=== PATIENT | female | born 1975 | race Caucasian/White ===

== ENCOUNTER → 2017-05-19 11:43 | Outpatient (CLI) | payer BC, SELFPAY ==
--- NOTE | 2017-05-19 11:49 | XR_ITS ---
XR chest 2V HISTORY: ITS.REASON: PERSISTENT COUGH ORDERING PHYSICIAN: Hannah Gupta PATIENT AGE: 42 years COMPARISON: None available FINDINGS: The cardiomediastinal silhouette and pulmonary vascularity are within normal limits. The lungs are clear without infiltrates, suspicious nodules, or pleural effusions. No acute bony abnormalities. IMPRESSION: Negative chest, no acute finding
== END ==
PROVIDERS: PCP Internal Medicine Adolescent Medicine; Visit Provider Nurse Practitioner Family
DX: R05 Cough (principal)
CPT/HCPCS: 71046

== ENCOUNTER 2017-05-23 22:01 | Emergency (ER) | payer BC, SELFPAY ==
[2017-05-23 22:22] VITALS: BP 129/79; PULSE 74; RESP 16; TEMP 36.8; O2SAT 96; BMI 32.5
[2017-05-23 23:07] LABS: Basophils % 0.3 % (0.1-2.0); Eosinophils # 0.1 K/mm3 (0.0-0.4); Eosinophils % 1.1 % (0.1-12.0); Hematocrit 34.5 % (37.0-47.0); Hemoglobin 11.3 g/dL (12.2-16.2); Lymphocytes # 1.5 K/mm3 (0.7-4.5); Lymphocytes % 21.3 K/mm3 (10-50); Mean Corpuscular HGB Conc 32.9 g/dL (31.8-35.4); Mean Corpuscular Hemoglobin 28.8 pg (27.0-31.2); Mean Corpuscular Volume 87.6 fl (81-99); Mean Platelet Volume 7.8 fl (7.4-10.4); Monocytes # 0.5 K/mm3 (0.1-1.0); Monocytes % 6.2 % (1.7-9.3); Neutrophils # 5.1 K/mm3 (1.8-7.8); Neutrophils % 71.1 % (37.0-80.0); Platelet Count 297 K/mm3 (142-424); Red Blood Count 3.93 M/mm3 (4.20-5.40); Red Cell Distribution Width 13.9 % (11.5-17.5); White Blood Count 7.2 K/mm3 (4.8-10.8)
[2017-05-23 23:14] LABS: Anion Gap 11.5 mEq/L (5-15); Blood Urea Nitrogen 13 mg/dL (7-18); Carbon Dioxide 29 mmol/L (21.0-32.0); Chloride 107 mmol/L (98-107); Creatinine Clearance Estimated 101 mL/min (0-300); Creatinine,Serum 1.05 mg/dL (0.55-1.02); Estimated Glomerular Filt Rate 57 ml/min (>60); GFR (African American) 70 ML/MIN (>60); Glucose 114 mg/dL (74-106); Potassium 3.5 mmoL/L (3.5-5.1); Sodium 144 mmol/L (136-145)
--- NOTE | 2017-05-23 23:34 | XR_ITS ---
XR chest 2V HISTORY: ITS.REASON: shortness of breath ORDERING PHYSICIAN: Zain Person MD PATIENT AGE: 42 years COMPARISON: 05/19/2017 FINDINGS: The cardiomediastinal silhouette and pulmonary vascularity are within normal limits. The lungs are clear without infiltrates, suspicious nodules, or pleural effusions. No acute bony abnormalities. IMPRESSION: Negative chest, no acute finding
--- NOTE | 2017-05-24 00:09 | HMH.EDSOB ---
ED Disposition Clinical Impression: Bronchitis Disposition: Home, Self-Care Condition on Discharge: Good Instructions: DI for Cough -- Adult Additional Instructions: fluids and use meds and call pcp for follow up Prescriptions: Azithromycin [Zithromax 250mg tab] 250 mg PO DIRECTED #6 tab predniSONE [Prednisone 20mg Tab] 20 mg PO DAILY #10 tab Referrals: Ministerio Phillips MD [Primary Care Provider] - - Critical Care Critical Care Time: No Attestation: On 05/23/17, the high probability of a clinically significant, sudden or life threatening deterioration of the following system(s) required my full and direct attention, intervention and personal management. The time I documented below is in addition to time spent performing reported procedures but includes the following listed in this critical care notation. Medical Decision Making - Medical Records Medical records reviewed: Yes: I reviewed the patient's medical records. Vital Signs: 05/23/17 22:22 Temperature 98.3 F Temperature Source Oral Pulse Rate [Left Radial] 74 Respiratory Rate 16 Blood Pressure [Right Arm] 129/79 Blood Pressure Mean [Right Arm] 95 Blood Pressure Source [Right Arm] Automatic Cuff Blood Pressure Position [Right Arm] Supine 02 Sat by Pulse Oximetry 96 Oxygen Delivery Method Room Air - Lab Data Lab results reviewed: Yes: I reviewed the patient's lab results. Lab Results 05/23/17 22:56: WBC 7.2, RBC 3.93 L, Hgb 11.3 L, Hct 34.5 L, MCV 87.6, MCH 28.8, MCHC 32.9, RDW 13.9, Plt Count 297, MPV 7.8, Neut % (Auto) 71.1, Lymph % (Auto) 21.3, [place] % (Auto) 6.2, Eos % (Auto) 1.1, Baso % (Auto) 0.3, Neut # (Auto) 5.1, Lymph # (Auto) 1.5, [place] # (Auto) 0.5, Eos # (Auto) 0.1, Baso # (Auto) 0.0 05/23/17 22:56: Sodium 144, Potassium 3.5, Chloride 107, Carbon Dioxide 29, Anion Gap 11.5, BUN 13, Creatinine 1.05 H, Estimated Creat Clear 101, Estimated GFR 57 L, Est GFR ( Amer) 70, Glucose 114 H 05/23/17 22:56: Influenza Type A Ag Negative, Influenza Type B Ag Negative Result diagrams: 05/23/17 22:56 05/23/17 22:56 Orders (Tests/Meds): ED MEDICATIONS Discontinued Medications Generic Name Dose Route Start Last Admin Trade Name Shameka PRN Reason Stop Dose Admin Sodium Chloride 1,000 mls @ 999 mls/hr 05/23/17 22:45 05/23/17 22:53 Sod Chloride 0.9% 1000ml Bag IV 05/23/17 23:45 999 mls/hr .Q1H1M GISELLE Administration Ceftriaxone Sodium 1 gm/ 50 mls @ 100 mls/hr 05/24/17 00:13 05/24/17 00:22 Sodium Chloride IV 05/24/17 00:42 100 mls/hr ONCE ONE Administration Methylprednisolone Sodium Succinate 125 mg 05/24/17 00:13 05/24/17 00:22 Solu-Medrol 125mg/2ml Vial IV 05/24/17 00:14 125 mg ONCE ONE Administration ORDERS Category Date Time Status XR chest 2V Stat Exams 05/23/17 23:34 Taken - Radiology Data #1 Image(s): Chest Image Reviewed: Yes I reviewed the patient's radiology image Preliminary Findings: Normal/NAD - [place]fe[place] Inquiry Pt receiving controlled substance: No Resp/SOB HPI - General Chief Complaint: Shortness of Breath/Dyspnea Stated Complaint: cough,sob,potter Time Seen by Provider: 05/24/17 00:09 Mode of Arrival: Ambulatory Limitations: No Limitations Description of Symptoms (Recalled from ER Triage Doc. 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
--- NOTE | 2017-05-24 00:12 | ED_ITS ---
ED Disposition Clinical Impression: Bronchitis Disposition: Home, Self-Care Condition on Discharge: Good Instructions: DI for Cough -- Adult Additional Instructions: fluids and use meds and call pcp for follow up Prescriptions: Azithromycin [Zithromax 250mg tab] 250 mg PO DIRECTED #6 tab predniSONE [Prednisone 20mg Tab] 20 mg PO DAILY #10 tab Referrals: Ministerio Phillips MD [Primary Care Provider] - - Critical Care Critical Care Time: No Attestation: On 05/23/17, the high probability of a clinically significant, sudden or life threatening deterioration of the following system(s) required my full and direct attention, intervention and personal management. The time I documented below is in addition to time spent performing reported procedures but includes the following listed in this critical care notation. Medical Decision Making - Medical Records Medical records reviewed: Yes: I reviewed the patient's medical records. Vital Signs: 05/23/17 22:22 Temperature 98.3 F Temperature Source Oral Pulse Rate [Left Radial] 74 Respiratory Rate 16 Blood Pressure [Right Arm] 129/79 Blood Pressure Mean [Right Arm] 95 Blood Pressure Source [Right Arm] Automatic Cuff Blood Pressure Position [Right Arm] Supine 02 Sat by Pulse Oximetry 96 Oxygen Delivery Method Room Air - Lab Data Lab results reviewed: Yes: I reviewed the patient's lab results. Lab Results 05/23/17 22:56: WBC 7.2, RBC 3.93 L, Hgb 11.3 L, Hct 34.5 L, MCV 87.6, MCH 28.8 , MCHC 32.9, RDW 13.9, Plt Count 297, MPV 7.8, Neut % (Auto) 71.1, Lymph % (Auto ) 21.3, [place] % (Auto) 6.2, Eos % (Auto) 1.1, Baso % (Auto) 0.3, Neut # (Auto) 5.1, Lymph # (Auto) 1.5, [place] # (Auto) 0.5, Eos # (Auto) 0.1, Baso # (Auto) 0.0 05/23/17 22:56: Sodium 144, Potassium 3.5, Chloride 107, Carbon Dioxide 29, Anion Gap 11.5, BUN 13, Creatinine 1.05 H, Estimated Creat Clear 101, Estimated GFR 57 L, Est GFR ( Amer) 70, Glucose 114 H 05/23/17 22:56: Influenza Type A Ag Negative, Influenza Type B Ag Negative Result diagrams: 05/23/17 22:56 05/23/17 22:56 Orders (Tests/Meds): ED MEDICATIONS Discontinued Medications Generic Name Dose Route Start Last Admin Trade Name Freq PRN Reason Stop Dose Admin Sodium Chloride 1,000 mls @ 999 mls/hr 05/23/17 22:45 05/23/17 22:53 Sod Chloride 0.9% 1000ml Bag IV 05/23/17 23:45 999 mls/hr .Q1H1M GISELLE Administration Ceftriaxone Sodium 1 gm/ 50 mls @ 100 mls/hr 05/24/17 00:13 05/24/17 00:22 Sodium Chloride IV 05/24/17 00:42 100 mls/hr ONCE ONE Administration Methylprednisolone Sodium Succinate 125 mg 05/24/17 00:13 05/24/17 00:22 Solu-Medrol 125mg/2ml Vial IV 05/24/17 00:14 125 mg ONCE ONE Administration ORDERS Category Date Time Status XR chest 2V Stat Exams 05/23/17 23:34 Taken - Radiology Data #1 Image(s): Chest Image Reviewed: Yes I reviewed the patient's radiology image Preliminary Findings: Normal/NAD - [place]go Inquiry Pt receiving controlled substance: No Resp/SOB HPI - General Chief Complaint: Shortness of Breath/Dyspnea Stated Complaint: cough,sob,potter Time Seen by Provider: 05/24/17 00:09 Mode of Arrival: Ambulatory Limitations: No Limitations Description of Symptoms (Recalled from ER Triage Doc. by RN): flu 2 weeks ago,
[2017-05-24 01:12] VITALS: BP 142/72; PULSE 90; RESP 14; O2SAT 96
== END 2017-05-24 01:12 | disposition home or self-care (01) ==
PROVIDERS: Emergency Provider Emergency Medicine; Family Provider Internal Medicine Adolescent Medicine; PCP Internal Medicine Adolescent Medicine
DX: J40 Bronchitis, not specified as acute or chronic (principal); Z79.82 Long term (current) use of aspirin; Z79.899 Other long term (current) drug therapy
CPT/HCPCS: 71046; 80048; 85025; 87275; 87276; 96365; 96367; 96375; 99283

== ENCOUNTER → 2017-11-04 10:40 | Outpatient (CLI) | payer BC, SELFPAY | PROVIDERS: PCP Internal Medicine Adolescent Medicine; Visit Provider Internal Medicine Adolescent Medicine | DX: R00.1 Bradycardia, unspecified (principal); R55 Syncope and collapse | CPT/HCPCS: 93270 ==

== ENCOUNTER 2018-09-20 15:26 | Emergency (ER) | payer MEDICAID, SELFPAY ==
[2018-09-20 15:44] VITALS: BP 133/89; PULSE 80; RESP 20; TEMP 36.8; O2SAT 98; BMI 31.3
--- NOTE | 2018-09-20 15:50 | HMH.EDUTC ---
[facility] [place] Dis[place] Clinical Impression: Migraine Qualifiers: Migraine type: with aura Status migrainosus presence: without status migrainosus Intractability: not intractable Qualified Code(s): G43.109 - Migraine with aura, not intractable, without status migrainosus Disposition: Home, Self-Care Condition on Discharge: Good Instructions: Migraine -- Adult, DI for Migraine Additional Instructions: Go home and rest. Take the promethazine (phenergran) for nausea if you need it. I sent in oral Imitrex for you try at home in the future. Don't take it today since you had the shot of it here. I sent in more ibuprofen 800 mg tablets for you to have at home. Follow up with your regular doctor. GO TO THE ER FOR ANY WORSENING SYMPTOMS Prescriptions: Ibuprofen [Ibuprofen 800mg Tablet] 800 mg PO TIDP PRN #30 tab PRN Reason: Moderate Pain SUMAtriptan succinate [Imitrex] 50 mg PO DAILYP PRN #20 tab PRN Reason: Migraine Headache Promethazine HCl [Phenergan 25mg tab] 25 mg PO Q6H PRN #30 tab PRN Reason: Nausea And Vomiting Referrals: Ministerio Phillips MD [Primary Care Provider] - Forms: Work/School Release Time of Disposition: 16:10 Medical Decision Making - Medical Records Medical records reviewed: Yes: I reviewed the patient's medical records. - Elfego Inquiry Pt receiving controlled substance: No Elfego was queried for this patient: No Vital Signs: 09/20/18 15:44 09/20/18 16:25 Temperature 98.3 F 98.3 F Temperature Source Oral Oral Pulse Rate 80 Pulse Rate [Right Brachial] 80 Respiratory Rate 20 20 Blood Pressure 133/89 Blood Pressure [Right Arm] 133/89 Blood Pressure Mean [Right Arm] 103 Blood Pressure Source Automatic Cuff Blood Pressure Source [Right Arm] Automatic Cuff Blood Pressure Position Sitting Blood Pressure Position [Right Arm] Sitting 02 Sat by Pulse Oximetry 98 Oxygen Delivery Method Room Air Room Air - Lab Data Lab results reviewed: Yes: I reviewed the patient's lab results. Orders (Tests/Meds): ED MEDICATIONS Discontinued Medications Generic Name Dose Route Start Last Admin Trade Name Freq PRN Reason Stop Dose Admin Ketorolac Tromethamine 60 mg 09/20/18 16:01 09/20/18 16:15 Toradol 60mg/2ml Vial IM 09/20/18 16:02 60 mg ONCE ONE Administration Methylprednisolone Sodium Succinate 125 mg 09/20/18 16:01 09/20/18 16:15 Solu-Medrol 125mg/2ml Vial IM 09/20/18 16:02 125 mg ONCE ONE Administration Sumatriptan Succinate 6 mg 09/20/18 16:02 09/20/18 16:15 Imitrex 6mg/0.5ml Vial SQ 09/20/18 16:03 6 mg ONCE ONE Administration [facility] [place] HPI - General Stated complaint: headache Time Seen by Provider: 09/20/18 15:50 Mode of Arrival: Family Vehicle Source of Information: Patient Limitations: No Limitations Description of Symptoms (Recalled from Triage Doc. by RN): c/o migraine headache HEENT Symptoms (Recalled from RN notes): Yes Resp Symptoms (Recalled from RN notes): No Skin Symptoms (Recalled from RN notes): No MS Symptoms (Recalled from RN notes): No Functional Status (Recalled from RN notes): n/a - History of Present Illness Provider Complaint: She has a history of migraine headache. Usually she can get it better by taking ibuprofen at home, but sometimes she ends up having to come in to get toradol, imitrex and a steroid shot to break it. She states this headache began yesterday morning. She denies that this is the worst headache of her life. She denies any neurological deficits. - Related Data Home Medications Medication Instructions Recorded Confirmed Aspirin [Aspirin 81mg chewable 81 mg PO DAILY 05/23/17 06/11/18 tab] Cetirizine HCl 10 mg PO DAILY 05/23/17 06/11/18 Citalopram Hydrobromide [Celexa 40 mg PO DAILY 05/23/17 06/11/18 40mg Tablet] Furosemide [Lasix 20mg tab] 20 mg PO DAILY 05/23/17 06/11/18 Lisinopril/Hydrochlorothiazide 1 tab PO DAILY 05/23/17 06/11/18 [Lisinopril-Hctz 20-25 mg
--- NOTE | 2018-09-20 15:58 | ED_ITS ---
[facility] [place] Impression: Migraine Qualifiers: Migraine type: with aura Status migrainosus presence: without status migrainosus Intractability: not intractable Qualified Code(s): G43.109 - Migraine with aura, not intractable, without status migrainosus Disposition: Home, Self-Care Condition on Discharge: Good Instructions: Migraine -- Adult, DI for Migraine Additional Instructions: Go home and rest. Take the promethazine (phenergran) for nausea if you need it. I sent in oral Imitrex for you try at home in the future. Don't take it today since you had the shot of it here. I sent in more ibuprofen 800 mg tablets for you to have at home. Follow up with your regular doctor. GO TO THE ER FOR ANY WORSENING SYMPTOMS Prescriptions: Ibuprofen [Ibuprofen 800mg Tablet] 800 mg PO TIDP PRN #30 tab PRN Reason: Moderate Pain SUMAtriptan succinate [Imitrex] 50 mg PO DAILYP PRN #20 tab PRN Reason: Migraine Headache Promethazine HCl [Phenergan 25mg tab] 25 mg PO Q6H PRN #30 tab PRN Reason: Nausea And Vomiting Referrals: Ministerio Phillips MD [Primary Care Provider] - Forms: Work/School Release Time of Disposition: 16:10 Medical Decision Making - Medical Records Medical records reviewed: Yes: I reviewed the patient's medical records. - Elfego Inquiry Pt receiving controlled substance: No Elfego was queried for this patient: No Vital Signs: 09/20/18 15:44 09/20/18 16:25 Temperature 98.3 F 98.3 F Temperature Source Oral Oral Pulse Rate 80 Pulse Rate [Right Brachial] 80 Respiratory Rate 20 20 Blood Pressure 133/89 Blood Pressure [Right Arm] 133/89 Blood Pressure Mean [Right Arm] 103 Blood Pressure Source Automatic Cuff Blood Pressure Source [Right Arm] Automatic Cuff Blood Pressure Position Sitting Blood Pressure Position [Right Arm] Sitting 02 Sat by Pulse Oximetry 98 Oxygen Delivery Method Room Air Room Air - Lab Data Lab results reviewed: Yes: I reviewed the patient's lab results. Orders (Tests/Meds): ED MEDICATIONS Discontinued Medications Generic Name Dose Route Start Last Admin Trade Name Freq PRN Reason Stop Dose Admin Ketorolac Tromethamine 60 mg 09/20/18 16:01 09/20/18 16:15 Toradol 60mg/2ml Vial IM 09/20/18 16:02 60 mg ONCE ONE Administration Methylprednisolone Sodium Succinate 125 mg 09/20/18 16:01 09/20/18 16:15 Solu-Medrol 125mg/2ml Vial IM 09/20/18 16:02 125 mg ONCE ONE Administration Sumatriptan Succinate 6 mg 09/20/18 16:02 09/20/18 16:15 Imitrex 6mg/0.5ml Vial SQ 09/20/18 16:03 6 mg ONCE ONE Administration [facility] [place] - General Stated complaint: headache Time Seen by Provider: 09/20/18 15:50 Mode of Arrival: Family Vehicle Source of Information: Patient Limitations: No Limitations Description of Symptoms (Recalled from Triage Doc. by RN): c/o migraine headache HEENT Symptoms (Recalled from RN notes): Yes Resp Symptoms (Recalled from RN notes): No Skin Symptoms (Recalled from RN notes): No MS Symptoms (Recalled from RN notes): No Functional Status (Recalled from RN notes): n/a - History of Present Illness Provider Complaint: She has a history of migraine headache. Usually she can get it better by
[2018-09-20 16:25] VITALS: BP 133/89; PULSE 80; RESP 20; TEMP 36.8; O2SAT 98
== END 2018-09-20 16:28 | disposition home or self-care (01) ==
PROVIDERS: Emergency Provider Nurse Practitioner Family; PCP Internal Medicine Adolescent Medicine
DX: G43.109 Migraine with aura, not intractable, without status migrainosus (principal); Z88.0 Allergy status to penicillin
CPT/HCPCS: 96372; 99201

== ENCOUNTER → 2018-11-14 10:39 | Outpatient (CLI) | payer MEDICAID, SELFPAY ==
[2018-11-14 11:16] LABS: Basophils % 0.3 % (0.1-2.0); Eosinophils # 0.1 K/mm3 (0.0-0.4); Eosinophils % 1.9 % (0.1-12.0); Hematocrit 37.4 % (37.0-47.0); Hemoglobin 11.9 g/dL (12.2-16.2); Lymphocytes # 1.4 K/mm3 (0.7-4.5); Lymphocytes % 25.7 % (10-50); Mean Corpuscular HGB Conc 31.8 g/dL (31.8-35.4); Mean Corpuscular Hemoglobin 26.8 pg (27.0-31.2); Mean Corpuscular Volume 84.3 fl (81-99); Mean Platelet Volume 7.2 fl (7.4-10.4); Monocytes # 0.3 K/mm3 (0.1-1.0); Monocytes % 4.5 % (1.7-9.3); Neutrophils # 3.7 K/mm3 (1.8-7.8); Neutrophils % 67.5 % (37.0-80.0); Platelet Count 294 K/mm3 (142-424); Red Blood Count 4.44 M/mm3 (4.20-5.40); Red Cell Distribution Width 13.3 % (11.5-17.5); White Blood Count 5.5 K/mm3 (4.8-10.8)
[2018-11-16 08:18] LABS: FSH 83.1 mIU/mL (.); LH 74.2 mIU/mL (.); Vitamin D 25 Hydroxy 25.4 ng/mL (30.0-100.0)
== END ==
PROVIDERS: Visit Provider Internal Medicine Adolescent Medicine
DX: R53.83 Other fatigue (principal); R53.81 Other malaise; E55.9 Vitamin D deficiency, unspecified
CPT/HCPCS: 36415; 82652; 83001; 83002; 85025

== ENCOUNTER → 2018-11-20 16:34 | Outpatient (CLI) | payer MEDICAID, SELFPAY ==
[2018-11-20 17:31] LABS: Erythrocyte Sedimentation Rate 24 mm/hr (0-20)
[2018-11-22 13:09] LABS: Anti-Centromere B Antibodies <0.2 AI (0.0-0.9); Anti-Jo-1 <0.2 AI (0.0-0.9); Anti-Smith Antibody <0.2 AI (0.0-0.9); Antichromatin Antibodies <0.2 AI (0.0-0.9); Antiscleroderma-70 Antibodies <0.2 AI (0.0-0.9); RNP Antibodies <0.2 AI (0.0-0.9); Sjogren's Anti-SS-A <0.2 AI (0.0-0.9); Sjogren's Anti-SS-B <0.2 AI (0.0-0.9)
[2018-11-23 11:15] LABS: Anti-DNA (DS) Ab Qn 2 IU/mL (0-9); RA Latex Turbid. <10.0 IU/mL (0.0-13.9)
[2018-11-23 11:16] LABS: Anti-Cyclic Citrullinated Pept 9 units (0-19)
== END ==
PROVIDERS: Visit Provider Internal Medicine Adolescent Medicine
DX: M25.50 Pain in unspecified joint (principal)
CPT/HCPCS: 36415; 85651; 86200; 86225; 86235; 86431

== ENCOUNTER → 2018-11-29 08:23 | Outpatient (CLI) | payer MEDICAID, SELFPAY ==
--- NOTE | 2018-11-29 08:25 | MM_ITS ---
MM Dig screening mamm BI w/CAD ORDERING PHYSICIAN : Ministerio Phillips MD PATIENT AGE: 43 years GENDER: Female COMPARISON: February 22 2014 & February 06, 2014, bilateral mammogram images. Bilateral Breast ultrasound January 2014 revealed cyst at right breast INDICATION: Routine: SCREENING mammogram. No hormones. No new complaints. Family history: paternal great grandmother with breast cancer in her 70s. Also Cousin with breast cancer. TECHNIQUE: Standard CC and MLO images were obtained. R2 CAD reviewed. FINDINGS: Mild/moderate residual fibroglandular elements most evident towards upper-outer quadrant both breasts. Mild asymmetry again noted. Left mammogram: Spot views and ultrasound recommended: Small slightly bilobed cyst measures up to 9 mm at lateral left breast with appearances previous studies. Warrants cc and MLO spot view along with full 90 degrees view breast. Followed by left breast ultrasound. This could be a intramammary node or small bilobed cyst but is more apparent than previous studies.. It is seen on the cc view but not only question is seen MLO view Right mammogram: no new areas of significant concern.. . Regression the previous small round density upper-outer quadrant compatible with regressing cyst at at right breast with no new areas of significant concern. A follow-up mammogram one year on right would be adequate IMPRESSION: ...... Left breast. Small bilobed nodule lateral left breast suspect reflects small cyst or possibly intramammary node.. However is become apparent since prior studies in this warrants spot views and ultrasound as prescribed within body of report above Right breast. No significant new findings. Follow-up mammogram in one year on right would be adequate BI-RADS Category: 0 Need Additional Imaging Evaluation RECOMMENDED FOLLOW-UP: IMM - IMMEDIATE FOLLOW-UP RECOMMENDED (A letter has been sent to the patient regarding results of the study.)
== END ==
PROVIDERS: PCP Internal Medicine Adolescent Medicine; Visit Provider Internal Medicine Adolescent Medicine
DX: Z12.31 Encounter for screening mammogram for malignant neoplasm of breast (principal)
CPT/HCPCS: 77067

== ENCOUNTER → 2018-12-15 14:22 | Outpatient (CLI) | payer MEDICAID, SELFPAY ==
--- NOTE | 2018-12-15 14:27 | MM_ITS ---
PROCEDURE: MM DIG MAMM DX UNILAT LT CAD LEFT BREAST ULTRASOUND COMPLETE WITH AXILLA CLINICAL INDICATION: ABNORMAL MAMM Follow-up abnormal mammogram COMPARISON: [facility] DIG MAMM-SCREEN NATHANAEL from 02/06/2014 [facility] DIG MAMM- NATHANAEL ADD VIEWS from 02/22/2014 BB US BREAST-NATHANAEL from 02/22/2014 DIG MAMM-SCREEN NATHANAEL from 11/29/2018 US BREAST LT COMPLETE from 12/15/2018 TECHNIQUE: Problem solving use of left breast performed along with left breast ultrasound FINDINGS: Mammogram: There is persistent asymmetric nodular density in the upper outer aspect of the left breast measuring approximately 9 mm. The margins are fairly well-circumscribed. There may actually be 2 smaller nodules at this area which would correspond to the ultrasound.. No malignant appearing microcalcifications are evident. Left breast ultrasound: There is a 4 by 5 mm cyst at 2 o'clock and an additional 4 x 4 mm cyst at 1 o'clock. IMPRESSION: Asymmetric density in the upper outer left breast may correspond to 2 cysts. Probably benign. Recommend 6 month mammographic and sonographic follow-up. No suspicious sonographic abnormality evident. BI-RAD Category: 3 Probably Benign Finding Short Term Follow-up FOLLOW-UP: 6M 6 Month Follow-up (A letter has been sent to the patient regarding results of the study.) Dictated by: Atul Harris MD 12/19/2018 09:39 Signed by: <Electronically signed by Atul Harris MD in [place]> 12/19/2018 09:39
== END ==
PROVIDERS: PCP Internal Medicine Adolescent Medicine; Visit Provider Internal Medicine Adolescent Medicine
DX: R92.8 Other abnormal and inconclusive findings on diagnostic imaging of breast (principal)
CPT/HCPCS: 76641; 77065

== ENCOUNTER → 2019-11-13 12:10 | Outpatient (CLI) | payer OTHER, SELFPAY ==
[2019-11-14 15:18] LABS: Covid-19 Nasal PCR Sendout Lex NOT DETECTED
== END ==
PROVIDERS: Visit Provider Nurse Practitioner Family
DX: Z20.828 Contact with and (suspected) exposure to other viral communicable diseases (principal)
CPT/HCPCS: U0004

== ENCOUNTER → 2020-05-31 10:04 | Outpatient (CLI) | payer OTHER, SELFPAY ==
[2020-05-31 11:32] LABS: Alanine Aminotransferase 49 U/L (12-78); Albumin Level 4.5 g/dl (3.5-5.0); Albumin/Globulin Ratio 1.2 (1.1-1.8); Alkaline Phosphatase 108 U/L (38-126); Anion Gap 12.4 mEq/L (5-15); Aspartate Amino Transferase 40 U/L (14-36); Bilirubin,Total 0.7 mg/dl (0.2-1.3); Blood Urea Nitrogen 8 mg/dl (7-17); Calcium 9.8 mg/dl (8.4-10.2); Carbon Dioxide 30 mmol/L (22.0-30.0); Chloride 104 mmol/L (98-107); Chol/HDL Ratio 4.2 (1-3.5); Cholesterol 207 mg/dl (140-200); Estimated Glomerular Filt Rate 60 ml/min (>60); GFR (African American) 73 ML/MIN (>60); Globulin 3.9 g/dL (1.3-3.2); Glucose 105 mg/dl (74-100); HDL Cholesterol 49 mg/dl (40-60); Potassium 4.4 mmoL/L (3.5-5.1); Sodium 142 mmol/L (136-145); Total Protein,Serum 8.4 g/dl (6.3-8.2); Triglycerides 182 mg/dl (30-150); VLDL Cholesterol 36 mg/dL (0-40)
[2020-05-31 11:43] LABS: Direct LDL Cholesterol 103.99 mg/dL (100-129)
== END ==
PROVIDERS: Visit Provider Nurse Practitioner Family
DX: I10 Essential (primary) hypertension (principal); Z79.899 Other long term (current) drug therapy
CPT/HCPCS: 36415; 80053; 80061

== ENCOUNTER → 2020-09-18 12:58 | Outpatient (CLI) | payer OTHER, SELFPAY ==
[2020-09-18 13:38] LABS: Basophils # 0.1 K/mm3 (0-0.2); Basophils % 0.7 % (0.1-2.0); Eosinophils # 0.2 K/mm3 (0.0-0.4); Eosinophils % 2.6 % (0.1-12.0); Hematocrit 40.7 % (37.0-47.0); Hemoglobin 13.6 g/dL (12.2-16.2); Lymphocytes # 2.1 K/mm3 (0.7-4.5); Lymphocytes % 28.2 % (10-50); Mean Corpuscular HGB Conc 33.4 g/dL (31.8-35.4); Mean Corpuscular Hemoglobin 28.3 pg (27.0-31.2); Mean Corpuscular Volume 84.7 fl (81-99); Mean Platelet Volume 7.8 fl (7.4-10.4); Monocytes # 0.3 K/mm3 (0.1-1.0); Monocytes % 4.3 % (1.7-9.3); Neutrophils # 4.7 K/mm3 (1.8-7.8); Neutrophils % 64.2 % (37.0-80.0); Platelet Count 292 K/mm3 (142-424); Red Blood Count 4.81 M/mm3 (4.20-5.40); Red Cell Distribution Width 13.4 % (11.5-17.5); White Blood Count 7.4 K/mm3 (4.8-10.8)
[2020-09-18 13:52] LABS: Chloride 103 mmol/L (98-107)
[2020-09-18 13:53] LABS: Potassium 4.2 mmoL/L (3.5-5.1); Sodium 140 mmol/L (136-145)
[2020-09-18 13:55] LABS: Alanine Aminotransferase 31 U/L (12-78); Anion Gap 13.2 mEq/L (5-15); Aspartate Amino Transferase 28 U/L (14-36); Blood Urea Nitrogen 12 mg/dl (7-17); Carbon Dioxide 28 mmol/L (22.0-30.0); Estimated Glomerular Filt Rate 68 ml/min (>60); GFR (African American) 82 ML/MIN (>60)
[2020-09-18 13:56] LABS: Albumin Level 4.6 g/dl (3.5-5.0); Albumin/Globulin Ratio 1.4 (1.1-1.8); Alkaline Phosphatase 104 U/L (38-126); Bilirubin,Total 0.5 mg/dl (0.2-1.3); Calcium 9.2 mg/dl (8.4-10.2); Chol/HDL Ratio 3.9 (1-3.5); Cholesterol 194 mg/dl (140-200); Globulin 3.3 g/dL (1.3-3.2); Glucose 104 mg/dl (74-100); HDL Cholesterol 50 mg/dl (40-60); Total Protein,Serum 7.9 g/dl (6.3-8.2); Triglycerides 140 mg/dl (30-150); VLDL Cholesterol 28 mg/dL (0-40)
[2020-09-18 14:08] LABS: Direct LDL Cholesterol 99.39 mg/dL (100-129)
[2020-09-18 14:13] LABS: 25-OH Vitamin D, Total 24.9 ng/mL (30-100)
[2020-09-18 14:25] LABS: Thyroid Stimulating Hormone 1.85 uIU/mL (0.465-4.68)
[2020-09-18 15:24] LABS: Vitamin B12 708 pg/mL (239-931)
== END ==
PROVIDERS: Visit Provider Internal Medicine Adolescent Medicine
DX: K21.9 Gastro-esophageal reflux disease without esophagitis (principal); R53.81 Other malaise; R53.83 Other fatigue; E55.9 Vitamin D deficiency, unspecified; Z79.899 Other long term (current) drug therapy
CPT/HCPCS: 36415; 80053; 80061; 82306; 82607; 84443; 85025

== ENCOUNTER → 2021-07-17 15:06 | Outpatient (CLI) | payer OTHER, SELFPAY ==
--- NOTE | 2021-07-17 15:11 | MM_ITS ---
PROCEDURE INFORMATION: Exam: MG Bilateral Screening 3D Mammography Exam date and time: 07/17/2021 3:10 PM Age: 46 years old Clinical indication: Screening. Maternal cousin with breast cancer. TECHNIQUE: Imaging protocol: Bilateral Screening tomosynthesis and 2D mammography including computer-aided detection (CAD) when performed. COMPARISON: 1. MG MM DIG MAMM DX UNILAT LT CAD 12/15/2018 3:02 PM 2. MG MM DIG SCREENING MAMM BI W/CAD 11/29/2018 8:52 AM 3. US BREAST LT COMPLETE 12/15/2018 3:25 PM FINDINGS: MAMMOGRAPHY: Breast composition: The breast tissue is composed of scattered areas of fibroglandular density. Mass: New 0.4 cm oval mass in the right upper outer quadrant, posterior 3rd. Resolved left upper outer quadrant mass. Architectural distortion: None. Calcifications: No suspicious calcifications. Asymmetric density: None. Skin thickening: None. Axillary adenopathy: None. IMPRESSION: Patient to be recalled for right breast ultrasound for further evaluation of right breast mass. ASSESSMENT: BI-RADS Category 0: Incomplete- Need Additional Imaging Evaluation and/or Prior Mammograms for Comparison
== END ==
PROVIDERS: PCP Internal Medicine Adolescent Medicine; Visit Provider Nurse Practitioner Family
DX: Z12.31 Encounter for screening mammogram for malignant neoplasm of breast (principal)
CPT/HCPCS: 77063; 77067

== ENCOUNTER → 2021-07-31 12:40 | Outpatient (CLI) | payer OTHER, SELFPAY ==
--- NOTE | 2021-07-31 12:42 | US_ITS ---
PROCEDURE INFORMATION: Exam: US Right Breast, Complete Exam date and time: 07/31/2021 1:12 PM Age: 46 years old Clinical indication: Abnormal findings on imaging; Right; Mass; Additional info: Abn mamm TECHNIQUE: Imaging protocol: Complete ultrasound of all four quadrants of the Right breast and the retroareolar regions, including ultrasound of the axilla when performed. COMPARISON: No relevant recent comparison exams are available. FINDINGS: Breast: High resolution sonography of the RIGHT breast demonstrates 4 x 4 x 4 mm nodule with posterior acoustic enhancement suggestive cyst breast at 10 o'clock position 10 cm from the nipple. Oval lymph nodes nodes with a fatty hilum in RIGHT axilla. IMPRESSION: 1. Probable cystic nodule in RIGHT breast at 10 o'clock position measuring 4 mm. 2. Recommend short interval follow-up and/or FNA-biopsy. ASSESSMENT: BI-RADS 0: Recommend short interval follow-up and/or FNA-biopsy.
== END ==
PROVIDERS: PCP Internal Medicine Adolescent Medicine; Visit Provider Nurse Practitioner Family
DX: R92.8 Other abnormal and inconclusive findings on diagnostic imaging of breast (principal)
CPT/HCPCS: 76641

== ENCOUNTER 2021-10-27 17:41 | Emergency (ER) | payer OTHER, SELFPAY ==
[2021-10-27 18:30] VITALS: BP 132/75; PULSE 87; RESP 18; TEMP 36.7; O2SAT 98; BMI 35.2
--- NOTE | 2021-10-27 18:55 | HMH.EDUTC ---
[facility] [place] Disposition Clinical Impression: URI (upper respiratory infection) Qualifiers: URI type: unspecified URI Qualified Code(s): J06.9 - Acute upper respiratory infection, unspecified Disposition: Home, Self-Care Condition on Discharge: Good Instructions: Sore Throat, DI for COVID-19 (Suspected or Confirmed ), Preventing the Spread of Coronavirus Discharge Instructions Additional Instructions: *Monitor Temp, Over the counter Motrin or Tylenol as directed/as needed Tylenol every 4 hours and Motrin every 6 hours (as long as your family doctor has told you that you can take it) for fever or pain. and straight to ER if unable to lower temp less than 101.0 after medication given *Warm salt water gargles may help to soothe the throat *Throat Lozenges *Warm fluids like tea with honey may help to soothe the throat *Sleep elevated *Humidifier/Vaporizer Your throat swab was sent for culture. Those results are typically sent to your primary care. Be sure to follow up in 2-3 days with your family doctor/primary care physician if no improvement so they can review those result and treat if necessary. If you don?t have a primary care doctor, I recommend you get one but in the mean time, you will have to return to a walk in clinic Follow up IMMEDIATELY for new or worsening symptoms or no Noticeable improvement over the next 48-72 hours. 911 for difficulty breathing or swallowing You were tested for today for COVID19 your test result should be back in the next 24-48 hours, you may check your results on the [facility] My Health Portal Make sure to take your Vitamins Vit. C Vit D and Zinc if you can take them Referrals: Ministerio Phillips MD [Primary Care Provider] - As needed Forms: Work/School Release Time of Disposition: 20:20 Medical Decision Making - Elfego Inquiry Pt receiving controlled substance: No Elfego was queried for this patient: No Vital Signs: 10/27/21 18:30 10/27/21 20:01 Temperature 98.0 F 98.0 F Temperature Source Oral Pulse Rate 87 Pulse Rate [Right Brachial] 87 Respiratory Rate 18 18 Blood Pressure 132/75 Blood Pressure [Right Arm] 132/75 Blood Pressure Mean [Right Arm] 94 Blood Pressure Source [Right Arm] Automatic Cuff Blood Pressure Position [Right Arm] Sitting 02 Sat by Pulse Oximetry 98 Oxygen Delivery Method Room Air - Lab Data Lab results reviewed: Yes: I reviewed the patient's lab results. Lab Results 10/27/21 18:25: Group A Strep Rapid Negative Orders (Tests/Meds): ORDERS Category Date Time Status Strep Screen Confirmation Stat Micro 10/27/21 18:25 Received Medical Decision Narrative: Still awaiting strep test results from lab Contacted lab to check on strep test advised that they just put them on the machine would be about 6-10 min [facility] [place] HPI - General Stated complaint: congestion, sore throat and headache Time Seen by Provider: 10/27/21 18:55 Mode of Arrival: Ambulatory Source of Information: Patient Limitations: No Limitations Description of Symptoms (Recalled from Triage Doc. by RN): PATIENT C/O SORE THROAT, HEADACHE AND COUGH HEENT Symptoms (Recalled from RN notes): Yes Resp Symptoms (Recalled from RN notes): Yes Skin Symptoms (Recalled from RN notes): No MS Symptoms (Recalled from RN notes): No Functional Status (Recalled from RN notes): WNL - History of Present Illness Provider Complaint: Patient states that she has been having sore throat, pain and pressure in her ears, sinus congestion and cough States that she took care of her grandchild this weekend and they was sick not sure if she may have caught something from them or not but today her throat was hurting worse and she was feeling tired and achy so she came in - Related Data Home Medications Medication Instructions Recorded Confirmed Aspirin [Aspirin 81mg chewable 81 mg PO DAILY 05/23/17 03/28/19 tab] Cetirizine HCl 10 mg PO DAILY 05/23/17 03/28/19 Citalopram Hydrobromide [Celexa 40 mg PO KEE
[2021-10-27 20:01] VITALS: BP 132/75; PULSE 87; RESP 18; TEMP 36.7; O2SAT 98
[2021-10-27 20:01] LABS: Strep Scrn Group A (Rapid) Negative (Negative)
== END 2021-10-27 20:33 | disposition home or self-care (01) ==
PROVIDERS: Emergency Provider Nurse Practitioner; PCP Internal Medicine Adolescent Medicine
DX: J06.9 Acute upper respiratory infection, unspecified (principal)
CPT/HCPCS: 87430; 99212; C9803; G0463; U0003; U0005

== ENCOUNTER 2023-05-15 19:31 | Emergency (ER) | payer SELFPAY ==
[2023-05-15 19:45] VITALS: BP 177/96; PULSE 85; RESP 16; TEMP 36.8; O2SAT 98; BMI 31.4
--- NOTE | 2023-05-15 19:49 | PC.NURSE ---
in room talking with patient at this time.
--- NOTE | 2023-05-15 19:55 | HMH.EDGENADL ---
Discharge Plan Disposition Patient Disposition: Home, Self-Care Condition: Good Prescriptions Prescriptions: New methocarbamol 500 mg tablet 1,000 mg PO Q8H PRN (Reason: muscle spasm) Qty: 30 0RF lidocaine 5 % adhesive patch,medicated 1 patch topical Q24H PRN (Reason: back pain) Qty: 15 0RF Rx Instructions: leave on most painful area for up to 12 hrs No Action citalopram 40 MG tablet 40 mg PO DAILY cetirizine 10 MG tablet 10 mg PO DAILY clonazepam 0.5 MG tablet 0.5 mg PO HS lisinopril-hydrochlorothiazide 1 EACH tablet 1 tab PO DAILY aspirin 81 MG tablet,chewable 81 mg PO DAILY furosemide 20 MG tablet 20 mg PO DAILY promethazine 25 MG tablet 25 mg PO Q6H PRN (Reason: Nausea And Vomiting) Qty: 30 2RF sumatriptan succinate 50 MG tablet 50 mg PO DAILYP PRN (Reason: Migraine Headache) Qty: 20 0RF ibuprofen 800 MG tablet 800 mg PO TIDP PRN (Reason: Moderate Pain) Qty: 30 1RF Referrals Follow up/Referrals: Ministerio Phillips MD [Primary Care Provider] - See instructions Activity Restrictions/Add. Instructions Additional Instructions/Restrictions: At this time it was felt you are safe to be discharged home. If new or worsening symptoms please do not hesitate to return the emergency department. If symptoms persist please follow-up with Dr. Gleason as discussed. Please take your medication as prescribed. Clinical Impressions Clinical Impression: Back pain Discharge ED Provider: Regan Michel General Adult HPI General Chief complaint: PAIN Stated complaint: back pain Time Seen by Provider: 05/15/23 19:37 Mode of Arrival: Ambulatory Source of Information: Patient Limitations: No Limitations Description of Symptoms (Recalled from ER Triage Doc. by RN): pt c/o R flank/back pain. pt states she took a diclofenac around 1600 without any relief. pt denies N/V/D or urinary symptoms. pt states she thinks she has a kidney infection. pt has a hx of HTN and has not taken her medication today. pt has also had a hysterectomy. History of Present Illness HPI narrative: Patient is a 48-year-old female with past medical history of chronic back pain, previous hysterectomy, no longer having her menstrual period who presents emergency department for evaluation of back pain and flank pain. 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 Over the last 24 hours she has had worsening right flank and right paraspinal back pain causing her to present here for continued evaluation. No vaginal discharge or dysuria, no chest pain or abdominal pain. Related Data Home Medications Medication Instructions Recorded Confirmed aspirin 81 mg chewable tablet 81 mg PO DAILY CAD 05/23/17 05/15/23 cetirizine 10 mg tablet 10 mg PO DAILY Allergy symptoms 05/23/17 05/15/23 citalopram 40 mg tablet 40 mg PO DAILY Anxiety 05/23/17 05/15/23 clonazepam 0.5 mg tablet 0.5 mg PO HS Insomnia 05/23/17 05/15/23 furosemide 20 mg tablet 20 mg PO DAILY High blood pressure 05/23/17 05/15/23 lisinopril 20 1 tab PO DAILY High blood pressure 05/23/17 05/15/23 mg-hydrochlorothiazide 25 mg tablet Previous Rx's Medication Instructions Recorded ibuprofen 800 mg tablet 800 mg PO TIDP PRN Moderate Pain 09/20/18 #30 tabs promethazine 25 mg tablet 25 mg PO Q6H PRN Nausea And 09/20/18 Vomiting #30 tabs sumatriptan succinate 50 mg tablet 50 mg PO DAILYP PRN Migraine 09/20/18 Headache #20 tabs lidocaine 5 % topical patch 1 patch topical Q24H PRN back pain 05/15/23 #15 ea methocarbamol 500 mg tablet 1,000 mg PO Q8H PRN muscle spasm 05/15/23 #30 tabs Allergies Allergy/AdvReac Type Severity Reaction Status Date / Time penicillin V [From PEN-VEE K] Allergy Severe S-SWELLS-OR Verified 05/15/23 19:51 AL/THROAT oxycodone [From PERCOCET] Allergy Intermediate I-HIVES Verified 05/15/23 19:51 PFSH PFSH Disclaimer: The information contained in this section may have been updated after the patient was seen, as this information can be updated by other users. Social History Smoking Status: Never smoker alcohol intake: never substance use type: denies use current occupational status: employed Travel in the last 8 weeks: None caffeine: Yes ROS Obtained: Yes Systems reviewed as appropriate & no additional complaints except as documented Physical Exam General General appearance: alert and in no apparent distress Head Head exam: atraumatic and normocephalic Eye Eye exam: Present PERRL and EOMI ENT ENT exam: Present mucous membranes moist Neck Neck exam: Present normal inspection Chest Chest inspection: Present normal inspection and symmetric chest wall rise Respiratory Respiratory exam: Present normal lung sounds bilaterally; Absent respiratory distress Cardiovascular Cardiovascular exam: Present regular rate and normal rhythm Abdominal Exam Abdominal exam: Present soft; Absent tenderness Extremities Exam Extremities exam: Present normal inspection Back Exam Back exam: Present tenderness (Right lumbosacral paraspinal, no midline lumbar tenderness) Neurological Exam Neurological exam: Present alert; Absent motor sensory deficit Psychiatric Psychiatric exam: Present normal affect Skin Skin exam: Present warm and dry Medical Decision Making Elfego Inquiry Pt receiving controlled substance: No Vital Signs: 05/15/23 19:45 05/15/23 20:05 05/15/23 21:01 Temperature 98.3 F 98.3 F Temperature Source Oral Pulse Rate 78 70 Pulse Rate [Left] 85 Respiratory Rate 16 16 Blood Pressure 144/74 H 126/79 Blood Pressure [Right Arm] 177/96 H Blood Pressure Mean [Right Arm] 123 Blood Pressure Source [Right Arm] Automatic Cuff Blood Pressure Position [Right Arm] Sitting 02 Sat by Pulse Oximetry 98 98 Oxygen Delivery Method Room Air Room Air Lab Data Lab Results 05/15/23 19:38: Urine Color Yellow, Urine Appearance Clear, Urine pH 6.0, Ur Specific [place] 1.025, Urine Protein Negative, Urine Glucose (UA) Negative, Urine Ketones Negative, Urine Blood Negative, Urine Nitrate Negative, Urine Bilirubin Negative, Urine Urobilinogen 0.2, Ur Leukocyte Esterase Negative, Urine RBC None, Urine WBC None, Ur Squamous Epith Cells Occasional, Urine Bacteria None 05/15/23 19:47: WBC 7.7, RBC 5.03, Hgb 14.7, Hct 43.0, MCV 85.6, MCH 29.3, MCHC 34.3, RDW 13.7, Plt Count 304, MPV 8.2, Neut % (Auto) 61.7, Lymph % (Auto) 31.4, Braxton % (Auto) 3.5, Eos % (Auto) 2.6, Baso % (Auto) 0.8, Neut # (Auto) 4.8, Lymph # (Auto) 2.4, Braxton # (Auto) 0.3, Eos # (Auto) 0.2, Baso # (Auto) 0.1, Sodium 140, Potassium 3.6, Chloride 103, Carbon Dioxide 31 H, Anion Gap 9.6, BUN 13, Creatinine 0.90, Estimated Creat Clear 107, Estimated GFR 67, Est GFR ( Amer) 81, Glucose 114 H, Calcium 9.0, Total Bilirubin 0.5, AST 42 H, ALT 44, Alkaline Phosphatase 103, Total Protein 8.3 H, Albumin 4.5, Globulin 3.8 H, Albumin/Globulin Ratio 1.2 05/15/23 19:57: SARS-CoV-2 (PCR) Not detected, Influenza A Untype (PCR) Not detected, Influenza Type B (PCR) Not detected 05/15/23 19:47 05/15/23 19:47 Orders (Tests/Meds): ED MEDICATIONS Discontinued Medications Generic Name Dose Route Start Last Admin Trade Name Freq PRN Reason Stop Dose Admin Acetaminophen 1,000 mg 05/15/23 19:53 05/15/23 20:03 Acetaminophen 1,000mg/100ml Vial IV 05/15/23 19:54 1,000 mg ONCE ONE Administration Lactated Ringer's 1,000 mls @ 999 mls/hr 05/15/23 19:57 05/15/23 20:01 Lactated Ringer's 1000 Ml Bag IV 05/15/23 20:57 999 mls/hr .Q1H1M ONE Administration Ketorolac Tromethamine 30 mg 05/15/23 19:53 05/15/23 20:02 Ketorolac 30mg/Ml Vial IV 05/15/23 19:54 30 mg ONCE ONE Administration Lidocaine 1 each 05/15/23 19:53 05/15/23 20:05 Lidocaine 5% Transdermal Patch TP 05/15/23 19:54 1 each ONCE ONE Administration Methocarbamol 1,000 mg 05/15/23 19:55 05/15/23 20:04 Methocarbamol 500mg Tablet PO 05/15/23 19:56 1,000 mg ONCE ONE Administration ORDERS Category Date Time Status CBC w/Auto Diff [Complete Blood Count Auto Diff] Stat Lab 05/15/23 19:47 Completed CMP [Comprehensive Metabolic Panel] Stat Lab 05/15/23 19:47 Completed Rapid PCR Covid and Flu A/B Stat Lab 05/15/23 19:57 Completed UA [Urinalysis and Microscopic] Stat Lab 05/15/23 19:38 Completed Medical Decision Narrative: In summary patient is a 48-year-old female with past medical history described above who presents emergency department for evaluation of right paraspinal back pain. Patient is hemodynamically stable nontoxic-appearing upon arrival, afebrile. Differential diagnosis includes lumbago, urinary tract infection, influenza, among others. Workup will be conducted with hematologic labs, urinalysis, viral swab. Initial inventions include crystalloid bolus, IV Tylenol, Toradol, methocarbamol. Initial workup reviewed by me, hematologic labs are nonactionable. Urinalysis interpreted by me and not consistent with infection. Viral swab negative. Given patient has no red flag symptoms for imaging although it was considered with respect to back pain will be deferred at this time. Given this patient is appropriate for outpatient management and will be discharged with a course of lidocaine patches and Robaxin, was given return precautions and will follow-up with Dr. Gleason within the next 1 to 2 weeks for continued evaluation. Critical Care Critical Care Time Critical Care Time: No
[2023-05-15 20:00] LABS: Microscopic, Urine URINE MICROSCOPIC (MICROSCOPIC)
[2023-05-15 20:00] LABS: Coronavirus 19, PCR Not Detected (NotDetected); Influenza A, PCR Not Detected (NotDetected); Influenza B, PCR Not Detected (NotDetected)
[2023-05-15] MEDS: LACTATED RINGERS 1000ML 1,000 ML 999 ML IV (20:01)
[2023-05-15] MEDS: KETOROLAC 30MG/ML VIAL 30 MG IV (20:02)
[2023-05-15 20:03] LABS: Basophils # 0.1 K/mm3 (0-0.2); Basophils % 0.8 % (0.1-2.0); Eosinophils # 0.2 K/mm3 (0.0-0.4); Eosinophils % 2.6 % (0.1-12.0); Hemoglobin 14.7 g/dL (12.2-16.2); Lymphocytes # 2.4 K/mm3 (0.7-4.5); Lymphocytes % 31.4 % (10-50); Mean Corpuscular HGB Conc 34.3 g/dL (31.8-35.4); Mean Corpuscular Hemoglobin 29.3 pg (27.0-31.2); Mean Corpuscular Volume 85.6 fl (81-99); Mean Platelet Volume 8.2 fl (7.4-10.4); Monocytes # 0.3 K/mm3 (0.1-1.0); Monocytes % 3.5 % (1.7-9.3); Neutrophils # 4.8 K/mm3 (1.8-7.8); Neutrophils % 61.7 % (37.0-80.0); Platelet Count 304 K/mm3 (142-424); Red Blood Count 5.03 M/mm3 (4.20-5.40); Red Cell Distribution Width 13.7 % (11.5-17.5); White Blood Count 7.7 K/mm3 (4.8-10.8)
[2023-05-15] MEDS: ACETAMINOPHEN 1,000MG/100ML VIAL 1000 MG IV (20:03)
[2023-05-15] MEDS: METHOCARBAMOL 500MG TABLET 1000 MG PO (20:04)
[2023-05-15 20:05] VITALS: BP 144/74; PULSE 78; O2SAT 98
[2023-05-15] MEDS: LIDOCAINE 5% TRANSDERMAL PATCH 1 EACH TP (20:05)
[2023-05-15 20:06] LABS: Chloride 103 mmol/L (98-107); Potassium 3.6 mmoL/L (3.5-5.1); Sodium 140 mmol/L (136-145)
[2023-05-15 20:08] LABS: Alanine Aminotransferase 44 U/L (12-78); Aspartate Amino Transferase 42 U/L (14-36); Bilirubin,Total 0.5 mg/dl (0.2-1.3); Blood Urea Nitrogen 13 mg/dl (7-17); Creatinine Clearance Estimated 107 mL/min (50-200); Estimated Glomerular Filt Rate 67 ml/min (>60); GFR (African American) 81 ML/MIN (>60)
[2023-05-15 20:09] LABS: Albumin Level 4.5 g/dl (3.5-5.0); Albumin/Globulin Ratio 1.2 (1.1-1.8); Alkaline Phosphatase 103 U/L (38-126); Anion Gap 9.6 mEq/L (5-15); Carbon Dioxide 31 mmol/L (22.0-30.0); Globulin 3.8 g/dL (1.3-3.2); Glucose 114 mg/dl (74-100); Total Protein,Serum 8.3 g/dl (6.3-8.2)
[2023-05-15 20:10] LABS: Appearance,Urine CLEAR (Clear); Bilirubin,Urine Negative (Negative); Blood, Urine Negative (Negative); Color,Urine YELLOW (Yellow); Glucose,Urine (UA) Negative (Negative); Ketones,Urine Negative (Negative); Leukocyte Esterase,Urine Negative (Negative); Nitrate,Urine Negative (Negative); Protein,Urine Negative (Negative); Specific Gravity, Urine 1.025 (1.005-1.030); Urobilinogen,Urine 0.2 EU/dl (0.2)
[2023-05-15 20:32] LABS: Squamous Epithelial Cell,Urine Occasional #/hpf (0-5)
[2023-05-15 21:01] VITALS: BP 126/79; PULSE 70; RESP 16; TEMP 36.8
== END 2023-05-15 21:24 | disposition home or self-care (01) ==
PROVIDERS: Emergency Provider Emergency Medicine; PCP Internal Medicine Adolescent Medicine
DX: M54.9 Dorsalgia, unspecified (principal); R10.9 Unspecified abdominal pain; R53.1 Weakness
CPT/HCPCS: 80053; 81001; 85025; 87636; 96361; 96374; 96375; 99285; J0131

== ENCOUNTER 2024-01-18 18:16 | Emergency (ER) | payer BC, SELFPAY ==
--- NOTE | 2024-01-18 18:33 | EXP.UTC ---
Discharge Plan Disposition Patient Disposition: Home, Self-Care Condition: Good Prescriptions Prescriptions: New azithromycin [Zithromax] 250 mg tablet 250 mg PO UD DOSE PK Qty: 6 0RF Rx Instructions: Take two (2) tablets today, then one (1) tablet days #2 thru #5 benzonatate 100 mg capsule 100 mg PO TIDP PRN (Reason: Cough) Qty: 30 0RF methylprednisolone 4 mg Tablets,Dose Pack 4 mg PO DIRECTED 6 Days Qty: 21 0RF Rx Instructions: Take 1 pack as directed for 6 days No Action methocarbamol 500 mg tablet 1,000 mg PO Q8H PRN (Reason: muscle spasm) Qty: 30 0RF lidocaine 5 % adhesive patch,medicated 1 patch topical Q24H PRN (Reason: back pain) Qty: 15 0RF Rx Instructions: leave on most painful area for up to 12 hrs citalopram 40 MG tablet 40 mg PO DAILY cetirizine 10 MG tablet 10 mg PO DAILY clonazepam 0.5 MG tablet 0.5 mg PO HS lisinopril-hydrochlorothiazide 1 EACH tablet 1 tab PO DAILY aspirin 81 MG tablet,chewable 81 mg PO DAILY furosemide 20 MG tablet 20 mg PO DAILY promethazine 25 MG tablet 25 mg PO Q6H PRN (Reason: Nausea And Vomiting) Qty: 30 2RF sumatriptan succinate 50 MG tablet 50 mg PO DAILYP PRN (Reason: Migraine Headache) Qty: 20 0RF ibuprofen 800 MG tablet 800 mg PO TIDP PRN (Reason: Moderate Pain) Qty: 30 1RF Referrals Follow up/Referrals: Ministerio Phillips MD [Primary Care Provider] - See instructions Activity Restrictions/Add. Instructions Additional Instructions/Restrictions: Drink plenty of fluids. Take tylenol or ibuprofen for pain or fever. Take the medications as directed. Follow up with your regular doctor. GO TO THE ER FOR ANY WORSENING SYMPTOMS Clinical Impressions Clinical Impression: Bronchitis, Sinusitis, Acute viral syndrome Instructions Patient Instructions: Sinusitis, DI for Sinusitis Print Language Print Language: Kiswahili Discharge ED Provider: Rakan Johnson [facility] [place] HPI General Stated complaint: chest bg, cough Time Seen by Provider: 01/18/24 18:30 Related Data Home Medications ?Medication ?Instructions ?Recorded ?Confirmed aspirin 81 mg chewable tablet 81 mg PO DAILY CAD 05/23/17 05/15/23 cetirizine 10 mg tablet 10 mg PO DAILY Allergy symptoms 05/23/17 05/15/23 citalopram 40 mg tablet 40 mg PO DAILY Anxiety 05/23/17 05/15/23 clonazepam 0.5 mg tablet 0.5 mg PO HS Insomnia 05/23/17 05/15/23 furosemide 20 mg tablet 20 mg PO DAILY High blood pressure 05/23/17 05/15/23 lisinopril 20 1 tab PO DAILY High blood pressure 05/23/17 05/15/23 mg-hydrochlorothiazide 25 mg tablet Previous Rx's ?Medication ?Instructions ?Recorded ibuprofen 800 mg tablet 800 mg PO TIDP PRN Moderate Pain 09/20/18 #30 tabs promethazine 25 mg tablet 25 mg PO Q6H PRN Nausea And 09/20/18 Vomiting #30 tabs sumatriptan succinate 50 mg tablet 50 mg PO DAILYP PRN Migraine 09/20/18 Headache #20 tabs lidocaine 5 % topical patch 1 patch topical Q24H PRN back pain 05/15/23 #15 ea methocarbamol 500 mg tablet 1,000 mg (2 x 500 mg) PO Q8H PRN 05/15/23 muscle spasm #30 tabs azithromycin 250 mg tablet 250 mg PO UD DOSE PK #6 tabs 01/18/24 (Zithromax) benzonatate 100 mg capsule 100 mg PO TIDP PRN Cough #30 caps 01/18/24 methylprednisolone 4 mg tablets in 4 mg PO DIRECTED 6 days #21 tabs 01/18/24 a dose pack Allergies Allergy/AdvReac Type Severity Reaction Status Date / Time penicillin V [From PEN-VEE K] Allergy Severe S-SWELLS-OR Verified 05/15/23 19:51 AL/THROAT oxycodone [From PERCOCET] Allergy Intermediate I-HIVES Verified 05/15/23 19:51 PFSH PFS Disclaimer: The information contained in this section may have been updated after the patient was seen, as this information can be updated by other users. Social History Smoking Status: Never smoker alcohol intake: never substance use type: denies use current occupational status: employed Travel in the last 8 weeks: None caffeine: Yes ROS Obtained: Yes All systems reviewed & no additional complaints except as documented Constitutional Constitutional: Reports poor appetite Eyes Eyes: Reports system reviewed and no additional complaints, except as documented ENT Ears, Nose, Mouth, and Throat: Reports as per HPI Cardiovascular Cardiovascular: Reports system reviewed and no additional complaints, except as documented and Denies chest pain Respiratory Respiratory: Denies shortness of breath, Denies chest congestion, Reports cough, Denies stridor and Denies wheezing Gastrointestinal Gastrointestingal: Reports system reviewed and no additional complaints, except as documented; Denies abdominal pain, diarrhea or vomiting Musculoskeletal Musculoskeletal: Reports system reviewed and no additional complaints, except as documented and Denies arthralgias Integumentary/Breasts Skin/Breast: Reports system reviewed and no additional complaints, except as documented and Denies rash Neurologic Neurologic: Denies paresthesias Allergic/Immunologic Allergic/Immunologic: Denies wheezing Physical Exam General General appearance: alert and in no apparent distress Head Head exam: atraumatic, normocephalic and normal inspection Eye Eye exam: Present normal appearance, PERRL and EOMI ENT ENT exam: Present mucous membranes moist and normal external ear exam Expanded ENT Exam TM/Canal exam: Bilateral TM: erythema and bulging Nose exam: Absent sinus tenderness Mouth exam: Present normal external inspection; Absent drooling Teeth exam: Present normal inspection Throat exam: Present tonsillar erythema, tonsillomegaly and tonsillar exudate Neck Neck exam: Present normal inspection, full ROM and trachea midline; Absent tenderness, meningismus or lymphadenopathy Chest Chest inspection: Present normal inspection and symmetric chest wall rise; Absent tenderness Respiratory Respiratory exam: Present normal lung sounds bilaterally; Absent respiratory distress, wheezes, stridor or accessory muscle use Cardiovascular Cardiovascular exam: Present regular rate and normal rhythm; Absent systolic murmur or diastolic murmur Abdominal Exam Abdominal exam: Present soft and normal bowel sounds; Absent distention, tenderness, guarding, rebound or rigidity Extremities Exam Extremities exam: Present normal inspection and normal capillary refill; Absent calf tenderness Back Exam Back exam: Present normal inspection and full ROM; Absent tenderness, CVA tenderness (R) or CVA tenderness (L) Neurological Exam Neurological exam: Present alert, oriented X3 and CN II-XII intact Psychiatric Psychiatric exam: Present normal affect and normal mood Skin Skin exam: Present warm, dry, intact and normal color Medical Decision Making Medical Records Medical records reviewed: No I reviewed the patient's medical records. Screening: Per USPSTF and CDC recommendations, given the prevalence of disease in our region, it is our hospital?s policy to screen for HIV and viral Hepatitis for all patients aged 18 and over and those with ongoing risk factors. Elfego Inquiry Pt receiving controlled substance: No
[2024-01-18 18:41] VITALS: BP 122/79; PULSE 69; RESP 20; TEMP 36.9; O2SAT 97; BMI 34.0
[2024-01-18 18:51] LABS: Apearance,Urine Clear (Clear); Color,Urine Yellow (Yellow); Glucose,Urine (UA) Negative (Negative); Ketones,Urine TRACE (Negative); PH,Urine 5.5 (5.0-8.5); Protein,Urine 2+ (Negative)
[2024-01-18 18:52] LABS: Bilirubin,Urine Negative (Negative); Blood, Urine Negative (Negative); UTC Leukocyte Esterase,Urine Negative (Negative); UTC Nitrate,Urine Negative (Negative); Urobilinogen,Urine 0.2 EU/dl (0.2)
[2024-01-18 19:15] VITALS: BP 122/79; PULSE 69; RESP 20; TEMP 36.9
== END 2024-01-18 19:00 | disposition home or self-care (01) ==
PROVIDERS: Emergency Provider Nurse Practitioner Family; PCP Internal Medicine Adolescent Medicine
DX: J20.9 Acute bronchitis, unspecified (principal); J01.90 Acute sinusitis, unspecified; B34.9 Viral infection, unspecified
CPT/HCPCS: 81003; 87635; 99212; 99214; G0463

== ENCOUNTER 2024-04-17 08:48 | Emergency (ER) | payer BC, SELFPAY ==
[2024-04-17 09:09] VITALS: BP 172/83; PULSE 84; RESP 20; TEMP 37.2; O2SAT 99; BMI 31.6
[2024-04-17 09:25] LABS: UTC Influenza A Antigen Negative (Negative); UTC Influenza B Antigen Negative (Negative)
--- NOTE | 2024-04-17 09:49 | ED_ITS ---
Discharge Plan Disposition Patient Disposition: Home, Self-Care Condition: Good Prescriptions Prescriptions: New azithromycin [Zithromax] 250 mg tablet 250 mg PO UD DOSE PK Qty: 6 0RF Rx Instructions: Take two (2) tablets today, then one (1) tablet days #2 thru #5 benzonatate 100 mg capsule 100 mg PO TIDP PRN (Reason: Cough) Qty: 30 0RF methylprednisolone 4 mg Tablets,Dose Pack 4 mg PO DIRECTED 6 Days Qty: 21 0RF Rx Instructions: Take 1 pack as directed for 6 days No Action methocarbamol 500 mg tablet 1,000 mg PO Q8H PRN (Reason: muscle spasm) Qty: 30 0RF lidocaine 5 % adhesive patch,medicated 1 patch topical Q24H PRN (Reason: back pain) Qty: 15 0RF Rx Instructions: leave on most painful area for up to 12 hrs azithromycin [Zithromax] 250 mg tablet 250 mg PO UD DOSE PK Qty: 6 0RF Rx Instructions: Take two (2) tablets today, then one (1) tablet days #2 thru #5 benzonatate 100 mg capsule 100 mg PO TIDP PRN (Reason: Cough) Qty: 30 0RF methylprednisolone 4 mg Tablets,Dose Pack 4 mg PO DIRECTED 6 Days Qty: 21 0RF Rx Instructions: Take 1 pack as directed for 6 days citalopram 40 MG tablet 40 mg PO DAILY cetirizine 10 MG tablet 10 mg PO DAILY clonazepam 0.5 MG tablet 0.5 mg PO HS lisinopril-hydrochlorothiazide 1 EACH tablet 1 tab PO DAILY aspirin 81 MG tablet,chewable 81 mg PO DAILY furosemide 20 MG tablet 20 mg PO DAILY promethazine 25 MG tablet 25 mg PO Q6H PRN (Reason: Nausea And Vomiting) Qty: 30 2RF sumatriptan succinate 50 MG tablet 50 mg PO DAILYP PRN (Reason: Migraine Headache) Qty: 20 0RF ibuprofen 800 MG tablet 800 mg PO TIDP PRN (Reason: Moderate Pain) Qty: 30 1RF Referrals Follow up/Referrals: Ministerio Phillips MD [Primary Care Provider] - See instructions Activity Restrictions/Add. Instructions Additional Instructions/Restrictions: Drink plenty of fluids. Take tylenol or ibuprofen for pain or fever. Take the medications as directed. Follow up with your regular doctor. GO TO THE ER FOR ANY WORSENING SYMPTOMS Clinical Impressions Clinical Impression: Bronchitis, Sinusitis Instructions Patient Instructions: Sinusitis, DI for Sinusitis Print Language Print Language: Malagasy Discharge ED Provider: Rakan Johnson [facility] General Stated complaint: sore throat, drainage, aches, headache Mode of Arrival: Ambulatory Source of Information: Patient Time Seen by Provider: 04/17/24 09:43 Description of Symptoms (Recalled from Triage Doc. by RN): CONGESTION, COUGH, DUTTON, BA, TIGHTNESS IN CHEST HEENT Symptoms (Recalled from RN notes): Yes Resp Symptoms (Recalled from RN notes): Yes Skin Symptoms (Recalled from RN notes): No MS Symptoms (Recalled from RN notes): No Functional Status (Recalled from RN notes): WNL Related Data Home Medications ?Medication ?Instructions ?Recorded ?Confirmed aspirin 81 mg chewable tablet 81 mg PO DAILY CAD 05/23/17 04/17/24 cetirizine 10 mg tablet 10 mg PO DAILY Allergy symptoms 05/23/17 05/15/23 citalopram 40 mg tablet 40 mg PO DAILY Anxiety 05/23/17 04/17/24 clonazepam 0.5 mg tablet 0.5 mg PO HS Insomnia 05/23/17 05/15/23 furosemide 20 mg tablet 20 mg PO DAILY High blood pressure 05/23/17 04/17/24 lisinopril 20 1 tab PO DAILY High blood pressure 05/23/17 04/17/24 mg-hydrochlorothiazide 25 mg tablet Previous Rx's ?Medication ?Instructions ?Recorded ibuprofen 800 mg tablet 800 mg PO TIDP PRN Moderate Pain 09/20/18 #30 tabs promethazine 25 mg tablet 25 mg PO Q6H PRN Nausea And 09/20/18 Vomiting #30 tabs sumatriptan succinate 50 mg tablet 50 mg PO DAILYP PRN Migraine 09/20/18 Headache #20 tabs lidocaine 5 % topical patch 1 patch topical Q24H PRN back pain 05/15/23 #15 ea methocarbamol 500 mg tablet 1,000 mg (2 x 500 mg) PO Q8H PRN 05/15/23 muscle spasm #30 tabs azithromycin 250 mg tablet 250 mg PO UD DOSE PK #6 tabs 01/18/24 (Zithromax) benzonatate 100 mg capsule 100 mg PO TIDP PRN Cough #30 caps 01/18/24 methylprednisolone 4 mg tablets in 4 mg PO DIRECTED 6 days #21 tabs 01/18/24 a dose pack azithromycin 250 mg tablet 250 mg PO UD DOSE PK #6 tabs 04/17/24 (Zithromax) benzonatate 100 mg capsule 100 mg PO TIDP PRN Cough #30 caps 04/17/24 methylprednisolone 4 mg tablets in 4 mg PO DIRECTED 6 days #21 tabs 04/17/24 a dose pack Allergies Allergy/AdvReac Type Severity Reaction Status Date / Time penicillin V (From PEN-VEE K) Allergy Severe S-SWELLS-OR Verified 05/15/23 19:51 AL/THROAT oxycodone (From PERCOCET) Allergy Intermediate I-HIVES Verified 05/15/23 19:51 Worker's Comp Is this a Worker's Comp case?: No [facility] Disclaimer: The information contained in this section may have been updated after the patient was seen, as this information can be updated by other users. Social History Smoking Status: Never smoker alcohol intake: never substance use type: denies use current occupational status: employed Travel in the last 8 weeks: None caffeine: Yes Have you lived/traveled outside [place] in past 30 days?: No Contact w/someone who lives/traveled outside [place] past 30 days?: No Exposure to someone with infectious disease in past 14 days?: No Do you have a fever (greater than 100.4 F or 38 C)?: No Have you tested positive for COVID-19: No Exposed to someone with COVID-19 in past 14 days?: No Do you have a sore throat?: Yes Do you have a cough?: Yes Do you have any weakness?: No Do you have any diarrhea?: No Are you experiencing any unusual bleeding?: No Do you have any muscle aches/pain?: No Do you have any abdominal pain?: No Are you experiencing loss of taste or smell?: No ROS Obtained: Yes All systems reviewed & no additional complaints except as documented Constitutional Constitutional: Reports poor appetite Eyes Eyes: Reports system reviewed and no additional complaints, except as documented ENT Ears, Nose, Mouth, and Throat: Reports as per HPI Cardiovascular Cardiovascular: Reports system reviewed and no additional complaints, except as documented and Denies chest pain Respiratory Respiratory: Denies shortness of breath, Reports chest congestion, Reports cough, Denies stridor and Denies wheezing Gastrointestinal Gastrointestingal: Reports system reviewed and no additional complaints, except as documented; Denies abdominal pain, diarrhea or vomiting Musculoskeletal Musculoskeletal: Reports system reviewed and no additional complaints, except as documented and Denies arthralgias Integumentary/Breasts Skin/Breast: Reports system reviewed and no additional complaints, except as documented and Denies rash Neurologic Neurologic: Denies paresthesias Allergic/Immunologic Allergic/Immunologic: Denies wheezing Physical Exam General General appearance: alert and in no apparent distress Eye Eye exam: Present normal appearance, PERRL and EOMI ENT ENT exam: Present mucous membranes moist and normal external ear exam Expanded ENT Exam External ear exam: Present normal external inspection TM/Canal exam: Bilateral TM: erythema and bulging Nose exam: Absent sinus tenderness Nasal speculum exam: Bilateral: normal Mouth exam: Present normal external inspection; Absent drooling Teeth exam: Present normal inspection Throat exam: Present tonsillar erythema and tonsillomegaly Neck Neck exam: Present normal inspection, full ROM and trachea midline; Absent tenderness, lymphadenopathy or thyromegaly Chest Chest inspection: Present normal inspection and symmetric chest wall rise; Absent tenderness or rash Respiratory Respiratory exam: Present normal lung sounds bilaterally; Absent respiratory distress, wheezes, stridor or accessory muscle use Cardiovascular Cardiovascular exam: Present regular rate, normal rhythm and normal heart sounds Abdominal Exam Abdominal exam: Present soft; Absent distention, tenderness, guarding, rebound or rigidity Extremities Exam Extremities exam: Present normal inspection, full ROM and normal capillary refill; Absent tenderness or calf tenderness Back Exam Back exam: Present normal inspection and full ROM; Absent tenderness Neurological Exam Neurological exam: Present alert and oriented X3 Psychiatric Psychiatric exam: Present normal affect and normal mood Skin Skin exam: Present warm, dry, intact and normal color Lymphatic Lymphatic Findings: no adenopathy Medical Decision Making Medical Records Medical records reviewed: No I reviewed the patient's medical records. Screening: Per USPSTF and CDC recommendations, given the prevalence of disease in our region, it is our hospital?s policy to screen for HIV and viral Hepatitis for all patients aged 18 and over and those with ongoing risk factors. [place] Inquiry Pt receiving controlled substance: No Vital Signs: 04/17/24 09:09 Temperature 98.9 F Temperature Source Oral Pulse Rate [Left Radial] 84 Respiratory Rate 20 Blood Pressure [Left Arm] 172/83 H Blood Pressure Mean [Left Arm] 112 02 Sat by Pulse Oximetry 99 Lab Data Lab Results 04/17/24 09:25: Influenza Type A Ag Negative, Influenza Type B Ag Negative
[2024-04-17 09:57] VITALS: BP 172/83; PULSE 84; RESP 20; TEMP 37.2
== END 2024-04-17 10:00 | disposition home or self-care (01) ==
PROVIDERS: Emergency Provider Nurse Practitioner Family; PCP Internal Medicine Adolescent Medicine
DX: J32.9 Chronic sinusitis, unspecified (principal); J40 Bronchitis, not specified as acute or chronic; R51.9 Headache, unspecified; R07.89 Other chest pain; J02.9 Acute pharyngitis, unspecified; M79.10 Myalgia, unspecified site; R09.81 Nasal congestion; R05.9 Cough, unspecified; M54.9 Dorsalgia, unspecified; R63.8 Other symptoms and signs concerning food and fluid intake
CPT/HCPCS: 87804; 99212; G0381

== ENCOUNTER 2024-06-22 06:59 | Day surgery (SDC) | payer BC, SELFPAY ==
[2024-06-19 12:43] VITALS: BMI 33.0
[2024-06-22 07:17] VITALS: BP 150/93; PULSE 71; RESP 16; TEMP 36.3; O2SAT 98
--- NOTE | 2024-06-22 07:44 | EXP.ANES.CKL ---
[facility] Disclaimer: The information contained in this section may have been updated after the patient was seen, as this information can be updated by other users. Medical History (Updated 06/22/24 @ 07:15 by Danelle Stock) Tubal infertility in female Cholecystectomy planned GERD (gastroesophageal reflux disease) Insomnia Anxiety Hypertension Surgical History H/O: hysterectomy Family History Other No significant family history Social History Smoking Status: Never smoker alcohol intake: never substance use type: denies use current occupational status: employed Travel in the last 8 weeks: None caffeine: Yes Have you lived/traveled outside [place] in past 30 days?: No Contact w/someone who lives/traveled outside [place] past 30 days?: No Exposure to someone with infectious disease in past 14 days?: No Do you have a fever (greater than 100.4 F or 38 C)?: No Have you tested positive for COVID-19: No Exposed to someone with COVID-19 in past 14 days?: No Do you have a sore throat?: No Do you have a cough?: No Do you have any weakness?: No Do you have any diarrhea?: No Are you experiencing any unusual bleeding?: No Do you have any muscle aches/pain?: Yes Do you have any abdominal pain?: No Are you experiencing loss of taste or smell?: No [facility] Anesthesia Checklist Patient Identification Patient Identification: Arm Band Structural Data Admitted From: Home Planned Operative Procedure/s: Colonoscopy Consent for Planned Operative Procedure(s) Verified: Yes Verified Documents: Surgical Consent and History and Physical NPO Status Verified Time NPO: 06:00 (finished prep) Additional verifications Anesthesia Reactions: No Airway Assessment Mallampati Score:: Class II C-Spine Mobility Assessed: Yes TMJ Mobility Assessed: Yes Dentition: Dentures-good fit (upper dentures removed) Neurological Assessment Level of Consciousness: Awake, Alert and Appropriate Anesthesia Plan Anesthesia Risk discussed: Yes Anesthesia Plan: Verified ASA Class: II Anesthesia Type: MAC
--- NOTE | 2024-06-22 08:12 | HMH.SCOPE ---
Procedure: Date: 06/22/24 Patient Date of :: 1975 Procedure Performed:: Aborted colonoscopy Indications:: Patient is a 49-year-old female referred by Dr. iMnisterio Phillips for initial screening colonoscopy. No symptoms of rectal bleeding. No family history of colon cancer. Her maternal grandmother had Crohn's colitis. Patient did take GoLytely as bowel prep and states that she had taken the majority of this but she did have some vomiting. . Performing Provider:: Torin Brewer MD Referring Provider:: Ministerio Phillips MD Sedation:: MAC sedation Procedure:: Patient history was obtained and appropriate physical examination was performed. Patient's medications and allergies were reviewed. Informed consent was obtained after explaining the benefits, alternatives, and risks of the procedure including, but not limited to, bleeding, perforation, missed lesions, and adverse reaction to anesthesia medications. Patient was transported to endoscopy procedure room. Patient was connected to monitoring devices. Throughout the procedure the patient's blood pressure, pulse, and oxygen saturations were monitored continuously. Patient identification and planned procedure were verified by the staff. Patient was positioned in lateral decubitus position. Digital anorectal exam was performed. Variable stiffness Olympus colonoscope was inserted. There was some thick pasty stool coating the mccullough circumferentially within the rectum. Attempt was made at irrigation. This was able to be partially cleared. Colonoscope was advanced to the distal sigmoid and prep was extremely poor. Procedure was aborted and colonoscope was withdrawn. . Findings:: Poor colonic preparation Recommendations:: Repeat colonoscopy with multi day maximum alternative prep Complications:: None immediately apparent Estimated blood obtained (mL): 0 Colonoscopy Component Colonoscopy Component Was a colonoscopy performed during today's procedure?: No
[2024-06-22 08:15] VITALS: O2SAT 98
[2024-06-22 08:27] VITALS: BP 156/78; PULSE 72; RESP 16; TEMP 36.5; O2SAT 99
[2024-06-22 08:37] VITALS: BP 167/92; PULSE 61; RESP 16; O2SAT 99
[2024-06-22 08:47] VITALS: BP 158/80; PULSE 66; RESP 16; O2SAT 99
[2024-06-22 08:57] VITALS: BP 164/95; PULSE 61; RESP 16; O2SAT 99
== END 2024-06-22 09:13 | disposition home or self-care (01) ==
PROVIDERS: PCP Internal Medicine Adolescent Medicine; Visit Provider Surgery
PROC: 0DJD8ZZ Inspection of Lower Intestinal Tract, Via Natural or Artificial Opening Endoscopic (ICD-10-PCS; CPT 45378; principal; 2024-06-22 08:30)
DX: Z12.11 Encounter for screening for malignant neoplasm of colon (principal)
CPT/HCPCS: 45378